=== PATIENT | male | born 1995 | race Caucasian/White ===

== ENCOUNTER 2018-11-04 10:56 | Emergency (ER) | payer OTHER, SELFPAY ==
[2018-11-04 10:58] VITALS: BP 120/81; PULSE 79; RESP 16; TEMP 36.7; O2SAT 99; BMI 24.3
[2018-11-04 11:36] LABS: Absolute Lymphocyte Count 1.89 X10^3/ul (0.83-4.51); Absolute Neutrophil Count 0.3 X10^3/uL (2.0-7.7); Eosinophil# 0.02 X10^3/uL; Eosinophils% 0.9 % (0-5); Hematocrit 24.9 % (40-54); Hemoglobin 8.9 g/dl (13.0-16.5); International Normalized Ratio 1.2; Lymphocyte # 1.89 X10^3/ul (4.0); Lymphocyte % 82.2 % (19-41); Mean Corp Hgb Conc 35.7 g/gl (32-36); Mean Corpuscular Hgb 33.8 pg (27.0-32.0); Mean Corpuscular Volume 94.7 fL (80-94); Mean Platelet Vol. 8.2 fl (6.2-12.0); Monocyte# 0.12 X10^3/uL; Monocyte% 5.2 % (0-10); Neutrophil # 0.27 X10^3/uL (2.7-7.7); Neutrophil % 11.7 % (47-70); Prothrombin Time (Protime)PT. 14.7 SECONDS (11.7-14.9); RBC Distribution Width CV 15.5 % (11.6-14.6); RBC Distribution Width SD 51.5 fl (35.1-43.9); RET-HE 38.1 pg (30-35); Red Blood Count 2.63 M/mm3 (4.6-6.2); Reticulocyte Count 1.58 % (0.5-1.5); White Blood Count 2.3 K/mm3 (4.4-11.0)
[2018-11-04 11:37] LABS: Partial Thromboplast Time 34.7 Seconds (24.1-36.2)
[2018-11-04 11:39] LABS: Differential Indicated SCAN CRITERIA MET; POSITIVE COUNT YES; POSITIVE DIFFERENTIAL YES; POSITIVE MORPHOLOGY NO; Platelet Count 14 K/mm3 (150-450)
--- NOTE | 2018-11-04 11:39 | ED.RN ---
LAB RESULTED PLATELET COUNT 14, PHYSICIAN NOTIFIED
[2018-11-04 11:42] LABS: ALB/GLOB Ratio 1.4 RATIO (0.9-2.4); AST(SGOT) 15 U/L (15-37); Alanine Aminotransfer ALT/SGPT 16 U/L (16-61); Albumin, Serum 4.2 g/dL (3.2-5.0); Alkaline Phosphatase 71 U/L (45-117); Anion Gap 5 (5-15); BUN 13 mg/dL (7-18); Chloride 109 mmol/L (98-107); Creatinine, Serum 0.86 mg/dL (0.70-1.30); EST Glomerular Filtration Rate 118 mL/min (>60); Est Glom Filt Rate - Afr Amer 143 mL/min (>60); Globulin 2.9 g/dL (2.2-4.2); Glucose 94 mg/dL (74-106); Potassium 4.1 mmol/L (3.5-5.1); Protein, Total 7.1 g/dL (6.4-8.2); Sodium Level 142 mmol/L (136-145)
--- NOTE | 2018-11-04 12:25 | ED.DCSUM_ITS ---
History of Present Illness Chief Complaint: Abn Labs Detail of Chief Complaint: Bruising and red spots Informant: Patient, Family, PCP Onset: Weeks Context: Gradual Onset Timing: Continuous Quality: Read narrative Location: Not applicable Current Severity: Mild Maximum Severity: Moderate Worsened by: Activity increases dyspnea Relieved by: Nothing Associated Symptoms: Bruising upper and lower extremities Narrative: 23-year-old male who was sent to the emergent because of pancytopenia. He attempted to donate blood and October 24. He was declined because of anemia. He follow-up with his PCP who obtained blood work. Blood work reveals pancytopenia with a white count of 2.3 thousand, H&H 9.4 and 20.1 with an MCV of 101.1. Platelet count is 24,000. Patient states is been bruising easily over the past week and now has red spots on his chest that he did not note yesterday. He denies change in color, consistency or caliber of his stool. He denies hematuria. Denies hemoptysis. He apparently took garlic supplements because it was winter . - Past Medical History (1) Pancytopenia Status: Acute Past Medical History - Allergies and Home Meds Allergies/Adverse Reactions: Allergies No Known Allergies Allergy (Verified 11/04/18 10:58) Primary Care Physician: Charanjit Lema DO [Primary Care Provider] - Prior records reviewed: No Surgical History: no surgical history Lives: With Family Smoking Status: Current some day smoker Alcohol: None Review of Systems General: Reports: Malaise. Denies: Chills, Fever, Subjective, Sweats, Weight loss, - Eyes: Denies: Visual changes - bilaterally, Blurred Vision - bilaterally, Diplopia ENT: Denies: Rhinorrhea, Sore throat Cardiovascular: Denies: Chest pain, Palpitations, Heart racing Respiratory: Reports: Dyspnea on exertion. Denies: Dyspnea, Cough Gastrointestinal: Denies: Abdominal pain, Nausea, Vomiting, Diarrhea, Melena, Hematochezia Genitourinary: Denies: Dysuria, Hematuria, Frequency Musculoskeletal: Denies: Myalgias, Arthralgias, Back pain, Swelling, Extremity Pain Skin: Reports: Rash Neurological: Reports: Headache. Denies: Weakness, Parasthesia, Numbness Hematologic: Reports: Easy bruising, Easy bleeding. Denies: Lymphadenopathy Allergy: Denies: Uticaria, Swelling of the mouth Physical Exam Vital Signs/Narrative: Vital Signs Temp Pulse Resp BP Pulse Ox 11/04/18 10:58 98.1 F 79 16 120/81 H 99 Inital Vital Signs reviewed: Yes General: Well nourished, Well developed, No Acute Distress Head: Normocephalic, Atraumatic Eyes: Perrl, EOMI, Pale conjunctiva. Negative for: Scleral icterus ENT: Moist mucous membranes, No rhinorrhea, TM's clear Neck: Supple, Nontender, No lymphadenopathy, No JVD, - Cardiovascular: Regular rate, Regular rhythm, No murmurs, Normal S1, Normal S2 Respiratory: No distress, CTA bilaterally, Chest nontender Abdomen: Soft, Nontender, Nondistended, Normal bowel sounds, No masses. Negative for: Hepatomegaly, Splenomegaly, Mass, Pulsatile mass Back: Nontender, Normal Inspection Extremities: Nontender, No edema Skin: Normal color, - - Multiple bruises upper and lower extremity and petechiae chest Diagnostic/Tx/Re-eval Laboratory Results 11/04/18 11/04/18 11/04/18 11:15 11:15 11:15 WBC 2.3 L RBC 2.63 L Hgb 8.9 L Hct 24.9 L MCV 94.7 H MCH 33.8 H MCHC 35.7 RDW 15.5 H RDW Differential 51.5 H Plt Count 14 L* MPV 8.2 Immature Gran % (Auto) 0.000 Neut % (Auto) 11.7 L Lymph % (Auto) 82.2 H Childress % (Auto) 5.2 Eos % (Auto) 0.9 Baso % (Auto) 0.0 Absolute Neuts (auto) 0.3 L Absolute Lymphs (auto) 1.89 Total Counted Not Reportable Diff Path Review May Immature Plt Fraction 3.0 Retic Count 1.58 H Immature Retic Fraction 12.70 Retic Hgb Equivalent 38.1 H PT 14.7 INR 1.2 APTT 34.7 Sodium 142 Potassium 4.1 Chloride 109 H Carbon Dioxide 28.0 Anion Gap 5 BUN 13 Creatinine 0.86 Estim Creat Clear Calc 162.40 Est GFR (MDRD) Af Amer 143 Est GFR (MDRD) Non-Af 118 BUN/Creatinine Ratio 15.0 Glucose 94 Calcium 9.0 Total Bilirubin 0.60 AST 15 ALT 16 Alkaline Phosphatase 71 Total Protein 7.1 Albumin 4.2 Globulin 2.9 Albumin/Globulin Ratio 1.4 - Medical Decision Making Need to workup pancytopenia. Etiology may be TTP, aplastic anemia or leukemia. Case was discussed with Dr. Cotto who referred patient to either [facility] or [facility]. Family chose [facility]. Will contact transfer line. Pathologist looked at the slide and stated there were no blast cells. This would raise concern for aplastic anemia. ED Disposition - Plan for ED Patient: Disposition: [facility] - Main Diagnosis: Pancytopenia, Aplastic anemia Referrals: Charanjit Lema DO [Primary Care Provider] -
[2018-11-04 13:07] LABS: Pathologist Review Reviewed
[2018-11-04 13:36] VITALS: BP 142/69; PULSE 86; RESP 14; O2SAT 100
[2018-11-04 15:24] VITALS: RESP 16; O2SAT 98
[2018-11-04 16:17] VITALS: BP 160/106; PULSE 98; RESP 14; O2SAT 98
== END 2018-11-04 15:59 | disposition short-term general hospital (02) ==
PROVIDERS: Emergency Provider Emergency Medicine; Family Provider Family Medicine; PCP Family Medicine
DX: D61.818 Other pancytopenia (principal); F17.200 Nicotine dependence, unspecified, uncomplicated
CPT/HCPCS: 80053; 85025; 85045; 85610; 85730; 99284; J7030; A4216